=== PATIENT | female | born 1985 | race Caucasian/White ===

== ENCOUNTER 2023-11-09 16:26 | Emergency (ER) | payer MEDICAID ==
[~2023-11-09] VITALS: Ht 165.1 cm; Wt 107.0 kg
[2023-11-09] MEDS ORDERED: LISINOPRIL (16:30)
[2023-11-09 16:31] VITALS: TEMP 98.4; O2SAT 100
[2023-11-09] MEDS ORDERED: KETOROLAC 60MG/2ML VIAL IM ONE (18:00)
[2023-11-09] MEDS: HYDROCODONE/ACETAMINOPHEN 5/325MG TABLET PO ONE (18:00)
[2023-11-09] MEDS ORDERED: HYDR-4001 MT (18:12)
[2023-11-09] MEDS ORDERED: IBUP-2028 MT (18:12)
[2023-11-09 18:30] VITALS: BP 167/102; PULSE 84; RESP 16
[2023-11-09] MEDS: KETOROLAC 30MG/ML VIAL IM NR (18:30)
== END 2023-11-09 19:28 | disposition home or self-care (01) ==
LOC: ER 16:26
DX: S82.891A Other fracture of right lower leg, initial encounter for closed fracture (principal); I10 Essential (primary) hypertension; V49.49XA Driver injured in collision with other motor vehicles in traffic accident, initial encounter; Y93.89 Activity, other specified; Y92.89 Other specified places as the place of occurrence of the external cause; Y99.8 Other external cause status
CPT/HCPCS: 99284; 29515; 81025; 72040; 73610; 96372; J1885